=== PATIENT | female | born 1970 | race Caucasian/White ===

== ENCOUNTER 2020-04-26 18:31 | Emergency (ER) | payer MEDICARE, MEDICAID, SELFPAY ==
[2020-04-26 18:40] VITALS: BP 144/88; PULSE 108; RESP 18; TEMP 36.9; O2SAT 100
--- NOTE | 2020-04-26 18:57 | ED.SKABFB ---
HPI - Skin/Abscess/Foreign Bdy General Chief complaint: Skin/Abscess/Foreign Body Stated complaint: bite on head under cochlear Time Seen by Provider: 04/26/20 18:57 Source: patient Mode of arrival: ambulatory Limitations: no limitations History of Present Illness HPI narrative: Dorothy Bermeo is a 49 yo female with no PMH who is here for skin infection around cochlear implant, started about 2 weeks ago, she has been trying to drain it and clean it. The drainage is purulent and has odor. no nausea vomiting diarrhea or fever. Related Data Home Medications Medication Instructions Recorded Confirmed omeprazole 40 mg PO DAILY 04/26/20 04/26/20 Allergies Allergy/AdvReac Type Severity Reaction Status Date / Time No Known Allergies Allergy Unverified 07/24/14 18:24 Review of Systems Review of Systems: Narrative: CONSTITUTIONAL: Denies fever, chills, sweats. EYES: Denies visual changes, redness, discharge. ENT: Denies rhinorrhea, congestion, sore throat, otalgia. CARDIOVASCULAR: Denies chest pain, palpitations, edema. RESPIRATORY: Denies dyspnea, wheezing, cough GASTROINTESTINAL: Denies abdominal pain, nausea, vomiting, diarrhea. GENITOURINARY: Denies dysuria, hematuria, abnormal discharge SKIN: Denies rash or itching. Infection of skin around cochlear implant NEUROLOGIC: Denies numbness, or focal weakness. PSYCHIATRIC: Denies anxiety or depression. FOR[facility]LY [facility] Past Medical History Medical History Nerve deafness Surgical History Surgical History Uses cochlear implant Family History Family History Other Diabetes mellitus Hypothyroid Social History Social History (Updated 04/26/20 @ 19:00 by Wanda Srinivasan CNP) Smoking packs per day: 0.2 Smoking cigarettes per day: 4.0 Smoking status: Current every day smoker Alcohol intake: never Gender identity (if verbalized by the patient): Female Comments At time of signature, I agree with nursing past medical, surgical, social and family history. There is no relevant family history pertinent to the presenting complaint. Patient's blood pressure is elevated, she follow-up with primary care physician Exam Narrative: Exam Narrative: GENERAL: This is a well-nourished, well-developed patient, in mild distress. HEAD: normocephalic, atraumatic. EYES: Sclera clear/white. Vision is grossly intact. EARS: External ears normal,. Hearing grossly intact. NOSE: External nose normal without nasal discharge, nares without redness, no rhinorrhea. THROAT: Mucous membranes moist, NECK: Neck supple, CARDIOVASCULAR: Regular rate and rhythm without murmurs, gallops, or rubs. RESPIRATORY: Clear to area of redness and induration around cochlear implant NEURO: awake, alert, and oriented to person, place and time. There were no obvious focal neurologic abnormalities. Steady gait EXTREMITIES: Normal range of motion. BACK: Nontender without deformity Course Course Emergency Course: Patient came to express care for treatment of lesion around cochlear implant that is draining and has order Started on bactrim and Keflex-care of area including keeping it clean and do not try to drain area Follow-up with primary care physician Vital Signs Vital signs: Vital Signs Temperature 98.5 F 04/26/20 18:40 Pulse Rate 108 H 04/26/20 18:40 Respiratory Rate 18 04/26/20 18:40 Blood Pressure 144/88 H 04/26/20 18:40 Pulse Oximetry 100 04/26/20 18:40 Temperature 98.5 F 04/26/20 18:40 Pulse Rate 108 H 04/26/20 18:40 Respiratory Rate 18 04/26/20 18:40 Blood Pressure 144/88 H 04/26/20 18:40 Pulse Oximetry 100 04/26/20 18:40 MDM - Skin/Abscess/Foreign Bdy Differential Diagnosis Differential diagnosis: Likely abscess of skin or subcutaneous tissue, cellulitis, contact dermatitis and other
== END 2020-04-26 19:11 | disposition home or self-care (01) ==
PROVIDERS: Emergency Provider Nurse Practitioner
DX: L03.811 Cellulitis of head [any part, except face] (principal); F17.210 Nicotine dependence, cigarettes, uncomplicated
CPT/HCPCS: 99213; G0463